=== PATIENT | male | born 1995 ===

== ENCOUNTER 2020-05-27 11:40 | Outpatient (REF) | payer OTHER, SELFPAY ==
[2020-05-27 15:09] LABS: CT PCR NOT DETECTED (Not Detect.); NG PCR NOT DETECTED (Not Detect.)
== END 2020-05-27 11:41 | disposition home or self-care (01) ==
LOC: HO.MANLNP 11:40
PROVIDERS: PCP Physician Assistant; Visit Provider Physician Assistant
DX: Z11.3 Encounter for screening for infections with a predominantly sexual mode of transmission (principal)
CPT/HCPCS: 87491; 87591